=== PATIENT | female | born 1985 | race Caucasian/White ===

== ENCOUNTER 2016-08-27 21:37 | Inpatient (IN) | payer OTHER ==
[~2016-08-27] VITALS: Ht 170.2 cm; Wt 82.0 kg
[~2016-08-27 21:37] MED LIST: IBUP-1222 PO; OXYC-302 PO
[2016-08-27] MEDS ORDERED: D5%-LACTATED RINGERS 1,000 ML IV SCH (22:22)
[2016-08-27] MEDS ORDERED: OXYTOCIN 30U/ 0.9% NaCL 500ML 500 ML IV ONE (22:22)
[2016-08-27] MEDS ORDERED: OXYTOCIN 30U/ 0.9% NaCL 500ML 500 ML IV PRN (22:22)
[2016-08-27] MEDS ORDERED: FENTANYL/BUPIV./NS/PF 250 ML EPIDCONT SCH (22:23)
[2016-08-27] MEDS ORDERED: NEWBORN KIT ONE (22:24)
[2016-08-27] MEDS ORDERED: OXYTOCIN 30U/ 0.9% NaCL 500ML 500 ML ONE (22:24)
[2016-08-27] MEDS ORDERED: FENTANYL PF 100 MCG/2ML IV PRN (22:30)
[2016-08-27] MEDS ORDERED: TERBUTALINE 1 MG/ML, 1ML IVPush PRN (22:30)
[2016-08-27] MEDS ORDERED: FENTANYL PF 100 MCG/2ML IVPush PRN (22:30)
[2016-08-27] MEDS ORDERED: ONDANSETRON 2MG/ML, 2ML IVPush PRN (22:30)
[2016-08-27] MEDS ORDERED: CALCIUM CARBONATE 500 MG TAB.CHEW PO PRN (22:30)
[2016-08-27] MEDS: LACTATED RINGERS 1,000 ML IV SCH (22:40)
[2016-08-27 22:46] LABS: HEMOGLOBIN 12.2 g/dL (11.7-16.4)
[2016-08-28] MEDS ORDERED: CALCIUM CARBONATE 500 MG TAB.CHEW ONE (00:05)
[2016-08-28] MEDS: LACTATED RINGERS 1,000 ML IV SCH (01:21)
[2016-08-28] MEDS ORDERED: FENTANYL/BUPIV./NS/PF 250 ML EPIDCONT SCH (02:02)
[2016-08-28] MEDS ORDERED: LACTATED RINGERS 1,000 ML IV SCH (02:02)
[2016-08-28] MEDS ORDERED: LACTATED RINGERS 1,000 ML IVBOLUS PRN (02:30)
[2016-08-28] MEDS ORDERED: METOCLOPRAMIDE 5 MG/ML, 2ML ONE (03:12)
[2016-08-28] MEDS ORDERED: METOCLOPRAMIDE 5 MG/ML, 2ML IVPush PRN (03:30)
[2016-08-28] MEDS ORDERED: IBUPROFEN 600 MG TABLET ONE (05:41)
[2016-08-28] MEDS ORDERED: OXYTOCIN 30U/ 0.9% NaCL 500ML 500 ML ONE (05:42)
[2016-08-28] MEDS: OXYTOCIN 30U/ 0.9% NaCL 500ML 500 ML IV SCH ×2 (05:48→15:34)
[2016-08-28] MEDS: IBUPROFEN 600 MG TABLET PO PRN ×2 (05:48→19:21)
[2016-08-28] MEDS ORDERED: CARBOPROST TROMETHAMINE 250 MCG/ML, 1ML IM PRN (06:00)
[2016-08-28] MEDS ORDERED: ACETAMINOPHEN 325 MG TABLET PO PRN ×2 (06:00)
[2016-08-28] MEDS ORDERED: ONDANSETRON 2MG/ML, 2ML IV PRN (06:00)
[2016-08-28] MEDS ORDERED: MISOPROSTOL 200 MCG TABLET PR PRN (06:00)
[2016-08-28] MEDS ORDERED: METHYLERGONOVINE 0.2 MG/ML IM PRN (06:00)
[2016-08-28] MEDS ORDERED: MEASLES,MUMPS&RUBELLA VACC/PF 0.5 ML SQ PRN (06:00)
[2016-08-28] MEDS ORDERED: DIPH,PERTUSS(ACELL),TET VAC/PF NC IM-VACC PRN (06:00)
[2016-08-28] MEDS ORDERED: OXYcodone/APAP 5/325MG TABLET PO PRN ×2 (06:00)
[2016-08-28] MEDS ORDERED: RHOGAM FROM BLOOD BANK 1 NOTE EA IM/IV ONE (06:00)
[2016-08-28 07:25] VITALS: BP 111/75
[2016-08-28] MEDS: PRENATAL VIT/IRON/FA 1 EACH TABLET PO SCH (09:00)
[2016-08-28 12:00] VITALS: BP 126/86
[2016-08-28 13:22] LABS: HEMOGLOBIN 12.1 g/dL (11.7-16.4)
[2016-08-28 16:00] VITALS: BP 117/80
[2016-08-28] MEDS: DOCUSATE 100 MG CAPSULE PO PRN (19:21)
[2016-08-28 19:30] VITALS: BP 104/71
[2016-08-29 00:30] VITALS: BP 107/68
[2016-08-29 06:40] VITALS: BP 111/74
[2016-08-29] MEDS: DOCUSATE 100 MG CAPSULE PO PRN (08:13)
[2016-08-29] MEDS: PRENATAL VIT/IRON/FA 1 EACH TABLET PO SCH (08:13)
== END 2016-08-29 13:00 | disposition home or self-care (01) | DRG 775 ==
LOC: LDOP 21:37 → LDIP 22:15 → 2NW 08-28 07:28
PROVIDERS: ADMIT Obstetrics & Gynecology; ATTEND Obstetrics & Gynecology
PROC: 10E0XZZ Delivery of Products of Conception, External Approach (ICD-10-PCS; principal; 2016-08-28)
PROC: 3E0R3CZ (ICD-10-PCS; 2016-08-28)
PROC: 00HU33Z Insertion of Infusion Device into Spinal Canal, Percutaneous Approach (ICD-10-PCS; 2016-08-28)
DX: O70.0 First degree perineal laceration during delivery (principal); Z37.0 Single live birth; Z3A.38 38 weeks gestation of pregnancy
CPT/HCPCS: 36415; 85025; 86850; 86900; 89060; J2590; J2765; J3010; J7120; J7121; Q0114